=== PATIENT | male | born 1955 | race Caucasian/White ===

== ENCOUNTER 2021-08-10 14:05 | Emergency (ER) | payer OTHER ==
[2021-08-10 15:22] VITALS: BP 137/69; PULSE 82; TEMP 97.9; BMI 29.7
[2021-08-10] MEDS ORDERED: FAMOTIDINE 10 MG TABLET PO ONE (15:55)
[2021-08-10] MEDS ORDERED: diphenhydrAMINE HCL 25 MG CAPSULE (FP) PO ONE ×2 (15:55→16:02)
[2021-08-10] MEDS ORDERED: FAMOTIDINE 20 MG TABLET ONE (16:02)
== END 2021-08-10 17:01 | disposition home or self-care (01) ==
LOC: JERFT 14:05
DX: R22.0 Localized swelling, mass and lump, head (principal); T78.1XXA Other adverse food reactions, not elsewhere classified, initial encounter
CPT/HCPCS: 99283-25

== ENCOUNTER 2022-05-18 04:33 | Day surgery (SDC) | payer BC ==
[2022-05-17 13:07] VITALS: BMI 28.1
[2022-05-18 10:59] VITALS: TEMP 97.8
[2022-05-18 11:58] VITALS: BP 120/72; PULSE 55; RESP 17
== END 2022-05-18 11:50 | disposition home or self-care (01) ==
LOC: JASU-ENDO 04:33
PROVIDERS: ATTEND Internal Medicine Gastroenterology
PROC: 0DBP8ZX Excision of Rectum, Via Natural or Artificial Opening Endoscopic, Diagnostic (ICD-10-PCS; principal; 2022-05-18 10:15)
DX: K57.30 Diverticulosis of large intestine without perforation or abscess without bleeding (principal); K62.1 Rectal polyp; K64.8 Other hemorrhoids
CPT/HCPCS: 88305-TC

== ENCOUNTER 2024-01-09 05:15 | Day surgery (SDC) | payer OTHER ==
[2024-01-05 12:09] VITALS: BMI 32.8
[2024-01-09 08:48] VITALS: RESP 18
[2024-01-09 10:24] VITALS: TEMP 98.4
[2024-01-09 11:09] VITALS: BP 125/71; PULSE 64
== END 2024-01-09 11:07 | disposition home or self-care (01) ==
LOC: JASU-ENDO 05:15
PROVIDERS: ATTEND Internal Medicine Gastroenterology
PROC: 0DB78ZX Excision of Stomach, Pylorus, Via Natural or Artificial Opening Endoscopic, Diagnostic (ICD-10-PCS; 2024-01-09)
PROC: 0DB68ZX Excision of Stomach, Via Natural or Artificial Opening Endoscopic, Diagnostic (ICD-10-PCS; 2024-01-09)
PROC: 0DB98ZX Excision of Duodenum, Via Natural or Artificial Opening Endoscopic, Diagnostic (ICD-10-PCS; principal; 2024-01-09 09:30)
DX: K29.50 Unspecified chronic gastritis without bleeding (principal); B96.81 Helicobacter pylori [H. pylori] as the cause of diseases classified elsewhere
CPT/HCPCS: 88305-TC; 88341-TC; 88342-TC